=== PATIENT | female | born 1985 | race Caucasian/White ===

== ENCOUNTER 2019-07-21 07:28 | Inpatient (IN) | payer MEDICAID ==
[~2019-07-21] VITALS: Ht 149.9 cm; Wt 69.8 kg
[2019-07-21 08:18] VITALS: BP 101/59; PULSE 70; RESP 15
[2019-07-21] MEDS ORDERED: MISOPROSTOL 200 MCG TAB PR PRN ×2 (08:30→12:00)
[2019-07-21] MEDS ORDERED: OXYTOCIN 30 UNITS/LR 500 ML IV PRN ×2 (08:30→12:00)
[2019-07-21] MEDS ORDERED: CARBOPROST 250 MCG INJ IM PRN ×2 (08:30→12:00)
[2019-07-21] MEDS ORDERED: METHYLERGONOVINE 0.2 MG INJ IM PRN ×2 (08:30→12:00)
[2019-07-21] MEDS ORDERED: CEFAZOLIN 2 GM/50 ML (PMX) 50 ML IVPB SCH (08:30)
[2019-07-21] MEDS ORDERED: OXYTOCIN 30 UNITS/LR 500 ML IV SCH ×2 (08:30→11:58)
[2019-07-21] MEDS: LACTATED RINGER'S 1,000 ML IV SCH ×3 (08:31→17:05)
[2019-07-21] MEDS ORDERED: CITRIC ACID/NA CITRATE 30 ML CUP ONE (08:49)
[2019-07-21] MEDS ORDERED: CITRIC ACID/NA CITRATE 30 ML CUP PO ONE (11:00)
[2019-07-21] MEDS ORDERED: KETOROLAC 30 MG INJ ONE (11:12)
[2019-07-21] MEDS ORDERED: METOCLOPRAMIDE 10 MG INJ ONE (11:12)
[2019-07-21] MEDS ORDERED: morphine SULFATE/PF (10 MG/10 ML) INJ ONE (11:12)
[2019-07-21] MEDS ORDERED: EPHEDrine 25 MG/5 ML SYG ONE (11:23)
[2019-07-21] MEDS ORDERED: IBUPROFEN 600 MG TAB PO SCH (12:00)
[2019-07-21] MEDS ORDERED: NA PHOSPHATE/BIPHOS 133 ML ENEMA PR PRN (12:00)
[2019-07-21] MEDS ORDERED: NACL 0.9% 3 ML SYG IV SCH (12:00)
[2019-07-21] MEDS ORDERED: LANOLIN HPA 1 PKT TOP PRN (12:00)
[2019-07-21] MEDS ORDERED: KETOROLAC 30 MG INJ IV PRN ×2 (12:30→19:30)
[2019-07-21] MEDS ORDERED: ONDANSETRON 4 MG INJ IV PRN ×3 (12:30→19:30)
[2019-07-21] MEDS ORDERED: NALOXONE (0.4 MG/ML) INJ IV PRN (12:30)
[2019-07-21] MEDS ORDERED: morphine 2 MG INJ IV PRN ×9 (12:30→19:30)
[2019-07-21] MEDS ORDERED: DIPHENHYDRAMINE 50 MG INJ IV PRN ×3 (12:30→19:30)
[2019-07-21 15:00] VITALS: BP 98/60; PULSE 61; RESP 17
[2019-07-21 16:00] VITALS: BP 99/59; PULSE 77; RESP 18
[2019-07-21 19:30] VITALS: BP 111/61; PULSE 70; RESP 19
[2019-07-21 23:30] VITALS: BP 101/54; PULSE 69; RESP 18
[2019-07-22] MEDS: LACTATED RINGER'S 1,000 ML IV SCH ×2 (00:57→09:52)
[2019-07-22 03:30] VITALS: BP 96/59; PULSE 70; RESP 19
[2019-07-22 08:00] VITALS: BP 91/60; PULSE 68; RESP 16
[2019-07-22 11:59] VITALS: BP 95/54; PULSE 65; RESP 18
[2019-07-22] MEDS: HYDROCODONE/APAP (5/325) TAB PO PRN ×3 (13:45→21:59)
[2019-07-22 16:00] VITALS: BP 95/56; PULSE 68; RESP 18
[2019-07-22 19:30] VITALS: BP 101/72; PULSE 76; RESP 18
[2019-07-23] MEDS: IBUPROFEN 600 MG TAB PO SCH ×4 (00:14→17:26)
[2019-07-23] MEDS: LACTATED RINGER'S 1,000 ML IV SCH ×3 (00:19→16:19)
[2019-07-23 03:55] VITALS: BP 109/56; PULSE 51; RESP 18
[2019-07-23 04:25] VITALS: BP 100/51; PULSE 70; RESP 18
[2019-07-23] MEDS: HYDROCODONE/APAP (5/325) TAB PO PRN ×2 (04:25→09:35)
[2019-07-23 16:45] VITALS: BP 100/61; PULSE 64; RESP 18
[2019-07-23 20:45] VITALS: BP 102/69; PULSE 69; RESP 17
[2019-07-24] MEDS: LACTATED RINGER'S 1,000 ML IV SCH ×2 (00:19→06:39)
[2019-07-24] MEDS: IBUPROFEN 600 MG TAB PO SCH ×3 (00:29→13:07)
[2019-07-24 04:00] VITALS: BP 105/59; PULSE 66; RESP 18
[2019-07-24 08:29] VITALS: BP 94/60; PULSE 58; RESP 18
[2019-07-24] MEDS ORDERED: MEASLES,MUMPS,RUBELLA VACCINE INJ SC* ONE (09:00)
[2019-07-24] MEDS ORDERED: DIPHTH/TET/ACEL PERTUSS (ADULT) 0.5 ML VIAL IM* ONE (09:00)
[2019-07-24] MEDS: HYDROCODONE/APAP (5/325) TAB PO PRN ×2 (10:36→14:36)
== END 2019-07-24 15:30 | disposition home or self-care (01) | DRG 788 ==
LOC: L-D 07:28 → PP1 15:01
PROVIDERS: ADMIT Obstetrics & Gynecology; ATTEND Obstetrics & Gynecology
PROC: 10900ZC Drainage of Amniotic Fluid, Therapeutic from Products of Conception, Open Approach (ICD-10-PCS; 2019-07-21)
PROC: 10D00Z1 Extraction of Products of Conception, Low, Open Approach (ICD-10-PCS; principal; 2019-07-21 09:00)
DX: O34.211 Maternal care for low transverse scar from previous cesarean delivery (principal); Z37.0 Single live birth; Z3A.39 39 weeks gestation of pregnancy
CPT/HCPCS: 85025; 85610; 85730; 86592; 86850; 86900; 86901; 87340; 90715; 99464; J0690; J1200; J1885; J2270; J2274; J2405; J2590; J2765; J7120